=== PATIENT | male | born 1980 | race African-American/Black ===

== ENCOUNTER 2023-11-29 03:28 | Emergency (ER) | payer OTHER ==
[~2023-11-29] VITALS: Ht 182.9 cm; Wt 113.6 kg
[2023-11-29 03:34] VITALS: TEMP 98.4
[2023-11-29 03:55] LABS: BASO # 0.1 K/mm3 (0.0-0.2); BASO % 0.7 % (0.0-2.0); EOS # 0.4 K/mm3 (0.0-0.7); EOS % 5.2 % (0.0-4.0); GRAN # 3.1 K/mm3 (1.4-6.5); HEMATOCRIT 43.9 % (42.0-52.0); HEMOGLOBIN 14.9 g/dl (13.5-18.0); LYMPH # 2.5 K/mm3 (1.2-3.4); LYMPH % 37.3 % (20.0-51.0); MEAN CELL VOLUME 92 fl (80.0-100.0); MEAN CORPUSCULAR HEMOGLOBIN 31 pg (27-31); MEAN CORPUSCULAR HGB CONC 34 g/dl (33.0-37.0); MEAN PLATELET VOLUME 9.7 fl (7.4-10.4); MONO # 0.7 K/mm3 (0.1-0.6); MONO % 10.4 % (1.7-9.3); PLATELET COUNT 238 K/mm3 (130-400); RED BLOOD COUNT 4.75 M/mm3 (4.20-5.60); REDCELL DISTRIBUTION WIDTH-CV 11.9 % (11.5-14.5)
[2023-11-29] MEDS ORDERED: diphenhydrAMINE 50 MG/ML 1 ML VIAL IV ONE (04:00)
[2023-11-29 04:13] LABS: ALANINE AMINOTRANSFERASE 40 U/L (0-55); ALBUMIN 3.6 g/dL (3.5-5.0); ALKALINE PHOSPHATASE 55 U/L (40-150); ANION GAP 11 mmol/L (7-16); AST,SGOT 28 U/L (5-34); BILIRUBIN,TOTAL 0.3 mg/dL (0.2-1.2); BLOOD UREA NITROGEN 16 mg/dL (9-21); CALCIUM 9.2 mg/dL (8.4-10.2); CHLORIDE 101 mEq/L (98-107); CREATININE, serum 1.33 mg/dL (0.72-1.25); GLUCOSE 104 mg/dL (70-99); LIPASE 17 U/L (8-78); POTASSIUM 4.1 mEq/L (3.5-4.5); SODIUM 138 mEq/L (136-145)
[2023-11-29 04:16] LABS: PH 5.5 (5.0-8.5); URINE APPEARANCE Clear (CLEAR/HAZY); URINE BLOOD Negative (NEGATIVE); URINE COLOR Yellow (YELLOW); URINE GLUCOSE Negative (NEGATIVE); URINE KETONE Negative (NEGATIVE); URINE NITRATE Negative (NEGATIVE); URINE PROTEIN(semi-quant) Negative (NEGATIVE); URINE UROBILINOGEN 0.2 E.U/dL (0.2-1.0)
[2023-11-29 04:17] LABS: COLLECTION METHOD CLEAN CATCH
[2023-11-29 04:19] LABS: TROPONIN-I < 0.010 ng/mL (0.00-0.033)
[2023-11-29] MEDS ORDERED: Iohexol 300 - 100 ML VIAL IV ONE (04:21)
[2023-11-29] MEDS ORDERED: NS 50 ML IV ONE (04:27)
[2023-11-29] MEDS ORDERED: LR 1,000 ML IV ONE (04:30)
[2023-11-29] MEDS ORDERED: Mag/Al Hydrox/Simeth Susp 30 ML CUP PO ONE (05:45)
[2023-11-29] MEDS ORDERED: Ondansetron 4 MG/2 ML VIAL IV ONE (05:45)
[2023-11-29] MEDS ORDERED: PRILOSEC 20MG20 MG PO (06:14)
[2023-11-29 06:29] VITALS: BP 114/84; PULSE 94
== END 2023-11-29 06:29 | disposition home or self-care (01) ==
LOC: COL.ER 03:28
PROVIDERS: Emergency Medicine
DX: K21.9 Gastro-esophageal reflux disease without esophagitis (principal); K44.9 Diaphragmatic hernia without obstruction or gangrene
CPT/HCPCS: J1200; J2405; J2765; J7120; Q9967